=== PATIENT | female | born 1965 | race Caucasian/White ===

== ENCOUNTER → 2018-03-02 | Outpatient (CLI) | payer OTHER ==
--- NOTE | 2018-03-02 16:23 | RADIOLOGY IMAGING REPORT ---
FACILITY: [facility] PATIENT NAME: CANDELARIA HANDY : [id number] MR: [id number] V: [id number] EXAM DATE: [id number] ORDERING PHYSICIAN: JOSEPH PINON TECHNOLOGIST: Sukumar Randhawa PROCEDURE:US RIGHT BREAST COMPLETE COMPARISON:None. INDICATIONS:RT BREAST LUMP UPPER OUTER RIGHT BREAST FINDINGS: The lower aspect of the Right breast was imaged from the 6 - 12 o'clock position. There were numerous cysts seen throughout the lateral portion of the Right breast, the largest measuring 2cm in diameter in the 10 o'clock position which may account for patient's palpable findings. Also noted is a well circumscribed ovoid hypoechoic nodule in the 9 o'clock position of the Right breast measuring 4.3mm x 3.8 x 3.6mm. The nodule is wider than tall. There is no acoustic shadowing. DIAGNOSTIC CATEGORY 3--PROBABLY BENIGN FINDING. RECOMMENDATIONS: SIX MONTH FOLLOW-UP ULTRASOUND: RIGHT BREAST. IMPRESSION: BIRADS3: Probably benign finding There are numerous cysts seen throughout the lateral portion of the Right breast likely accounting for patient's palpable findings. There is an additional well circumscribed hypoechoic nodule 9 o'clock position of the Right breast measuring 4.3mm in diameter for which a 6 month follow up Right breast Ultrasound is recommended. Dictated by: Julissa Woodard M.D. on 03/02/2018 at 11:55 Transcribed by: ELGIN on 03/02/2018 at 13:25 Approved by: Julissa Woodard M.D. on 03/02/2018 at 16:22 [facility]
--- NOTE | 2018-03-02 16:23 | RADIOLOGY IMAGING REPORT ---
FACILITY: [facility] - [place] PATIENT NAME: CANDELARIA HANDY : [id number] MR: [id number] V: [id number] EXAM DATE: ORDERING PHYSICIAN: JOSEPH PINON TECHNOLOGIST: Jana Davis PROCEDURE:BILATERAL DIAGNOSTIC DIGITAL MAMMOGRAM WITH CAD ASSISTED INTERPRETATION & 3D TOMOSYNTHESIS COMPARISON:Prior mammograms 04/07/17, 04/02/16, 04/01/15, 03/05/14, 02/26/14 INDICATIONS:PALPABLE RT BREAST LUMP UPPER OUTER QUADRANT FINDINGS: Dense heterogeneous fibroglandular tissue is seen throughout the breasts. The parenchymal pattern has remained stable allowing for difference in mammographic technique & patient positioning. There is no demonstration of malignant appearing mass, malignant appearing calcification or other secondary sign of malignancy in either breast. Today's Right breast Ultrasound did demonstrate numerous cysts along the lateral aspect of the Right breast & one well circumscribed small hypoechoic nodule in the 9 o'clock position. A 6 month follow up Right breast Ultrasound is recommended as described in today's Right breast Ultrasound report. DIAGNOSTIC CATEGORY 3--PROBABLY BENIGN FINDING. RECOMMENDATIONS: SIX MONTH FOLLOW-UP ULTRASOUND: RIGHT BREAST. IMPRESSION: BIRADS 3: Probably benign finding. 6 month follow up Right breast Ultrasound recommended to evaluate the small well circumscribed hypoechoic nodule in the 9 o'clock position of the Right breast as described in today's Right breast Ultrasound report. Dictated by: Julissa Woodard M.D. on 03/02/2018 at 12:01 Transcribed by: ELGIN on 03/02/2018 at 13:42 Approved by: Julissa Woodard M.D. on 03/02/2018 at 16:22 [facility]
== END ==
LOC: MAMO 01:00
PROVIDERS: ATTEND Obstetrics & Gynecology
DX: N60.01 Solitary cyst of right breast (principal); N63.11 Unspecified lump in the right breast, upper outer quadrant
CPT/HCPCS: 77066

== ENCOUNTER → 2018-08-23 | Outpatient (CLI) | payer OTHER ==
--- NOTE | 2018-08-24 10:44 | RADIOLOGY IMAGING REPORT ---
FACILITY: [facility] - [place] PATIENT NAME: CANDELARIA HANDY : [id number] MR: [id number] V: [id number] EXAM DATE: [id number] ORDERING PHYSICIAN: CEE LEMUS TECHNOLOGIST: Sukumar Randhawa RDMS, SHERRY PROCEDURE:US RIGHT BREAST COMPLETE COMPARISON:Right breast Ultrasound 03/02/18. INDICATIONS:6 MO F/U FINDINGS: In the 9 o'clock position of the Right breast there is a well circumscribed ovoid hypoechoic nodule measuring 4.2mm in diameter and is relatively unchanged when compared to the prior study. Due to the solid nature a 6 month follow-up Right breast Ultrasound is recommended to document stability over a 2 year period. At that time the patient will be due for her annual mammogram. DIAGNOSTIC CATEGORY 3--PROBABLY BENIGN FINDING. RECOMMENDATIONS: SIX MONTH FOLLOW-UP ULTRASOUND: RIGHT BREAST. IMPRESSION: BIRADS 3: Probably benign finding. A 6 month follow-up Right breast Ultrasound is recommended as described. Dictated by: Julissa Woodard M.D. on 08/23/2018 at 16:28 Transcribed by: [email or web address] on 08/24/2018 at 8:58 Approved by: Julissa Woodard M.D. on 08/24/2018 at 10:43 [facility]
== END ==
LOC: US 02:20
PROVIDERS: ATTEND Family Medicine
DX: N63.13 Unspecified lump in the right breast, lower outer quadrant (principal)

== ENCOUNTER → 2019-03-08 | Outpatient (CLI) | payer OTHER ==
[~2019-03-08] MED LIST: FLU60VIA41 IM
--- NOTE | 2019-03-09 11:26 | RADIOLOGY IMAGING REPORT ---
FAC[place] [facility] [place]IENT NAME: CANDELARIA HANDY : [id number] MR: [id number] V: [id number] EXAM DATE: ORDERING PHYSICIAN: CEE LEMUS TECHNOLOGIST: Maria Fernanda Nelson RDMS(ABD,OBGYN,BR),RVT PROCEDURE:US RIGHT BREAST COMPLETE COMPARISON:Prior Right breast Ultrasound of 08/23/18, 03/02/18 INDICATIONS:6 month follow up FINDINGS: In the 9 o'clock position of the Right breast 4cm from the nipple there is a well circumscribed round hypoechoic nodule measuring 4mm in diameter. This appears relatively unchanged when compared to the prior study. There is no acoustic shadowing. In the 9:30 position of the Right breast 6cm from the nipple there is a 7mm in diameter circumscribed hypoechoic nodule with acoustic enhancement which appears to represent a debris filled cyst. In the 9:30 position of the Right breast 5cm from the nipple there is a circumscribed hypoechoic nodule measuring 5mm in diameter that appears unchanged. DIAGNOSTIC CATEGORY 3--PROBABLY BENIGN FINDING. RECOMMENDATIONS: SIX MONTH FOLLOW-UP ULTRASOUND: RIGHT BREAST. IMPRESSION: BIRADS 3: Probably benign finding. There are multiple hypoechoic nodules in the Right breast as described above. A 6 month follow up Right breast Ultrasound is recommended to document stability unless clinical findings warrant more immediate attention. Dictated by: Julissa Woodard M.D. on 03/08/2019 at 15:30 Transcribed by: ELGIN on 03/09/2019 at 10:20 Approved by: Julissa Woodard M.D. on 03/09/2019 at 11:24 [facility]
--- NOTE | 2019-03-09 11:26 | RADIOLOGY IMAGING REPORT ---
FACILITY: [facility] PATIENT NAME: CANDELARIA HANDY : [id number] MR: [id number] V: [id number] EXAM DATE: ORDERING PHYSICIAN: CEE LEMUS TECHNOLOGIST: Jana Davis PROCEDURE:BILATERAL DIGITAL SCREENING MAMMOGRAM WITH CAD ASSISTED INTERPRETATION & 3D TOMOSYNTHESIS COMPARISON:Prior mammograms dated 03/02/18, 04/07/17, 04/02/16, 04/01/15, 03/05/14 INDICATIONS:Screening FINDINGS: The breasts are heterogeneously dense which can obscure small masses. The parenchymal pattern has remained stable when allowing for differences in mammographic technique & patient positioning. Again there is a well circumscribed nodular density in the upper outer quadrant of the Right breast in the middle third. Please see today's Right breast Ultrasound for additional findings. DIAGNOSTIC CATEGORY 3--PROBABLY BENIGN FINDING. RECOMMENDATIONS: SIX MONTH FOLLOW-UP ULTRASOUND: RIGHT BREAST. IMPRESSION: BIRADS 3: Probably benign finding. A 6 month Right breast Ultrasound is recommended as discussed in today's Right breast Ultrasound report. Dictated by: Julissa Woodard M.D. on 03/08/2019 at 15:36 Transcribed by: ELGIN on 03/09/2019 at 9:35 Approved by: Julissa Woodard M.D. on 03/09/2019 at 11:24 [facility]
== END ==
LOC: MAMO 00:37
PROVIDERS: ATTEND Family Medicine
DX: Z12.31 Encounter for screening mammogram for malignant neoplasm of breast (principal); Z80.3 Family history of malignant neoplasm of breast
CPT/HCPCS: 77063; 77067